=== PATIENT | male | born 1955 | race Caucasian/White ===

== ENCOUNTER → 2017-12-04 | Outpatient (CLI) | payer OTHER ==
--- NOTE | 2017-12-04 13:27 | DIAGNOSTIC IMAGING REPORT ---
CHEST 2 VIEWS ROUTINE CLINICAL HISTORY: Cough and congestion. COMPARISON STUDY: No previous studies for comparison. FINDINGS: Left lung is clear. A 4.6 cm airspace opacity within the right mid to upper lung is noted. Scattered additional right lung airspace opacities are noted. There is no pneumothorax, pleural effusion or evidence for cavitation. There is no evidence for pulmonary edema. Cardiac size is normal. Mediastinal contours are normal. IMPRESSION: Multifocal right lung airspace opacities, including a 4.6 cm right midlung opacity. The findings suggest pneumonia. Radiographic follow to ensure resolution is recommended. Electronically signed by: Josh Bobby M.D. 12/04/2017 1:26 PM Dictated Date/Time: 12/04/2017 1:24 PM
== END | disposition home or self-care (01) ==
LOC: C.RAD 12:43
PROVIDERS: ATTEND Student in an Organized Health Care Education/Training Program
DX: R05 Cough (principal); R91.8 Other nonspecific abnormal finding of lung field

== ENCOUNTER → 2018-01-12 | Outpatient (CLI) | payer OTHER ==
--- NOTE | 2018-01-12 09:57 | DIAGNOSTIC IMAGING REPORT ---
CHEST 2 VIEWS ROUTINE HISTORY: Follow-up PNEUMONIA COMPARISON: Chest 12/04/2017. FINDINGS: The lungs are clear. Cardiac silhouette is normal in size. No pleural effusions. No pneumothorax. IMPRESSION: No acute process within the chest. The right lung airspace opacities seen on the prior study have resolved in the interval. Electronically signed by: Luis Reyes M.D. 01/12/2018 9:56 AM Dictated Date/Time: 01/12/2018 9:55 AM
== END | disposition home or self-care (01) ==
LOC: C.RAD 09:31
PROVIDERS: ATTEND Student in an Organized Health Care Education/Training Program
DX: J18.9 Pneumonia, unspecified organism (principal)